=== PATIENT | female | born 1960 | race Caucasian/White ===

== ENCOUNTER 2016-09-30 06:28 | Day surgery (SDC) | payer BC ==
[~2016-09-30 06:28] MED LIST: Buffered Lidocaine 1% SYR 3ML* 3 ML/SYR SYRINGE INTRADERM ONE; Buffered Lidocaine 1% SYR 3ML* 3 ML/SYR SYRINGE ONE; Clindamycin 900 MG IVPREMIX(* 900 MG/50 ML SDV IV ONE; Dexamethasone IV* 4 MG/ML 1 ML (4 MG) ONE; Famotidine IV* 10 MG/ML 2 ML (20 mg) IV ONE; Famotidine IV* 10 MG/ML 2 ML (20 mg) ONE; Heparin VIAL(*) 5000 UNITS/ML VIAL (FIVE THOUSAND) ONE; Ondansetron INJ* 2 MG/ML VIAL ONE; PROCHLORPERAZINE INJ 5 MG/ML 2 ML VIAL IV PRN; Scopolamine 1.5 mg* PATCH ONE
[2016-09-30 07:12] LABS: UR Preg Internal Control QC Line Present; UR Preg Kit Lot# 6060104
[2016-09-30 07:13] LABS: Manual Entry Verification AS
[2016-09-30] MEDS ORDERED: Bupivacaine 0.25% EPI 200,000* 30 ML SDV ONE (07:28)
[2016-09-30] MEDS ORDERED: Midazolam* 1 MG/ML 5 ML VIAL (5 MG) ONE (07:35)
[2016-09-30] MEDS ORDERED: fentaNYL* 50 MCG/ML 2 ML VIAL (100 MCG VIAL) ONE ×3 (07:35→13:37)
[2016-09-30] MEDS ORDERED: KETAMINE HCL* 50 MG/ML 10 ML VIAL ONE (07:35)
[2016-09-30] MEDS ORDERED: Dexamethasone IV* 4 MG/ML 1 ML (4 MG) ONE (08:08)
[2016-09-30] MEDS ORDERED: Lidocaine 2% PF * 5 ML VIAL ONE (08:08)
[2016-09-30] MEDS ORDERED: PROCHLORPERAZINE INJ 5 MG/ML 2 ML VIAL ONE ×2 (08:08→12:47)
[2016-09-30] MEDS ORDERED: Propofol* 10 MG/ML 20 ML BTL IV PUSH ONE (08:08)
[2016-09-30] MEDS ORDERED: Ondansetron INJ* 2 MG/ML VIAL ONE (08:08)
[2016-09-30] MEDS ORDERED: Morphine INJ* 10 MG/ML 1 ML CARPUJECT ONE ×3 (08:09→12:30)
[2016-09-30] MEDS: fentaNYL* 50 MCG/ML 2 ML VIAL (100 MCG VIAL) IV PRN ×5 (12:26→13:39)
[2016-09-30] MEDS: Morphine INJ* 2 MG/ML 1 ML CARPUJECT IV PRN ×2 (12:31→13:15)
[2016-09-30] MEDS ORDERED: oxyCODONE/Acetamin 5/325 MG* TAB ONE ×3 (12:46→16:52)
[2016-09-30] MEDS: oxyCODONE/Acetamin 5/325 MG* TAB PO PRN ×4 (12:47→17:10)
[2016-09-30 20:05] VITALS: BP 107/60
== END 2016-09-30 18:33 | disposition home or self-care (01) ==
LOC: OR 06:28
PROVIDERS: ATTEND Plastic Surgery
DX: N62 Hypertrophy of breast (principal); M54.9 Dorsalgia, unspecified; G89.29 Other chronic pain; M54.2 Cervicalgia; I10 Essential (primary) hypertension; K21.9 Gastro-esophageal reflux disease without esophagitis
CPT/HCPCS: 81025; 88305; A9270-GY; J0780; J1100; J1644; J2250; J2270; J2405; J2704; J3010